=== PATIENT | female | born 1985 | race Caucasian/White ===

== ENCOUNTER 2018-08-08 22:05 | Emergency (ER) | payer SELFPAY ==
[2018-08-08 22:10] VITALS: BMI 29.2
--- NOTE | 2018-08-08 22:15 | PDOC ---
History of Present Illness - General Chief Complaint: Vaginal Bleeding Stated Complaint: VAGINAL BLEEDING/7 WKS Time Seen by Provider: 08/08/18 22:14 - History of Present Illness Initial Comments: 08/08/18 22:35 The patient is a 33 year old 7 week female who presents for evaluation of vaginal bleeding. The patient reports a 1 day history of crampy lower abdominal pain with associated vaginal spotting prompting her presentation to the ED for further evaluation. 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 Her LMP was 06/23/18. She reports some constipation but otherwise denies fevers, chills, SOB, chest pain, nausea, vomiting, or changes with urination. Past History - Past Medical History Allergies/Adverse Reactions: Allergies Allergy/AdvReac Type Severity Reaction Status Date / Time No Known Allergies Allergy Verified 08/08/18 22:10 Home Medications: Ambulatory Orders Oxycodone HCl/Acetaminophen [Percocet 5/325 -] 1 - 2 tab PO Q4H PRN #20 tablet 10/22/15 COPD: No - Immunization History Immunization Up to Date: Yes - Suicide/Smoking/Psychosocial Hx Smoking History: Never smoked Have you smoked in the past 12 months: No Hx Alcohol Use: Yes (occasion) Drug/Substance Use Hx: No Substance Use Type: None Review of Systems - Review of Systems Comments:: 08/08/18 22:37 Constitutional: No fevers, chills, fatigue, malaise HEENT: No Rhinorrhea, nasal congestion, visual changes Cardiovascular: No chest pain, syncope, palpitations, lightheadedness Respiratory: No Cough, SOB, Hemoptysis, Gastrointestinal: Lower abdominal cramping. No Nausea, Vomiting, Constipation, Diarrhea, Melena Genitourinary: Vaginal bleeding. No Dysuria, Frequency, Urgency, Hesitancy, Hematuria, Flank pain Musculoskeletal: No Myalgia, arthralgia Skin: No rashes, itching, bruising, pallor Neurologic: No Headache, Dizziness, Numbness, Weakness, or Tingling Psychiatric: No Hallucinations. No SI or HI *Physical Exam - Vital Signs Last Vital Signs Temp Pulse Resp BP Pulse Ox 86 18 116/67 100 08/08/18 22:07 08/08/18 22:07 08/08/18 22:07 08/08/18 22:07 - Physical Exam Comments: 08/08/18 22:39 General Appearance: Nourished. No Apparent Distress HEENT No Pharyngeal Erythema, Tonsillar Exudate, Tonsillar Erythema Neck: No Cervical Lymphadenopathy Respiratory/Chest: Lungs Clear, Normal Breath Sounds. No Crackles, Rales, Rhonchi, Wheezing Cardiovascular: Regular Rhythm, Regular Rate. No Murmur, Gallops, Rubs Gastrointestinal/Abdominal: Normal Bowel Sounds, Soft. No Guarding, Rebound, Tenderness Pelvic Exam: Musculoskeletal: No CVA Tenderness Extremity: Normal Capillary Refill Integumentary: Normal Color, Dry, Warm Neurologic: Fully Oriented, Alert, Normal Mood/Affect, Normal Response, ED Treatment Course - LABORATORY CBC & Chemistry Diagram: 08/08/18 22:33 08/08/18 23:00 Medical Decision Making - Medical Decision Making 08/08/18 22:39 The patient is a 33 year old 7 week female who presents for evaluation of vaginal bleeding. The patient appears clinically well on exam. Given the patient's history and physical exam, we will obtain a cbc, cmp, beta- quant, ua, type and screen and transvaginal US to evaluate further. We will continue to monitor and reassess while here in the ED. *DC/Admit/Observation/Transfer Diagnosis at time of Disposition: Threatened - Discharge Dispostion Disposition: HOME Condition at time of disposition: Stable Decision to Admit order: No - Referrals Referrals: Cici Bentley MD [Primary Care Provider] - - Patient Instructions Printed Discharge Instructions: DI for Vaginal Bleeding During Additional Instructions: Please return to the ER if you experience concerning or worsening symptoms including worsening difficulty breathing, weakness, or chest pain, vaginal bleeding, abdominal pain. Your lab and ultrasound results were normal here in the ER. Please call to schedule a follow up appointment with your OB specialist within 2-3 days to discuss your ER visit and further management of your symptoms. - Post Discharge Activity
[2018-08-08 22:51] LABS: BASO % 0.7 % (0-2.0); EOS % 1.1 % (0-4.5); HEMATOCRIT 38.9 % (32.4-45.2); HEMOGLOBIN 13.8 GM/dL (10.7-15.3); LYMPH % 36.6 % (8-40); MCH 32.2 pg (25.7-33.7); MCHC 35.4 g/dl (32.0-36.0); MEAN CELL VOLUME 91.2 fl (80-96); MEAN PLT VOLUME 7.9 fl (7.5-11.1); MONO % 10.5 % (3.8-10.2); NEUT % 51.1 % (42.8-82.8); PLATELET COUNT 277 K/MM3 (134-434); RBC 4.27 M/mm3 (3.60-5.2); RDW 13.2 % (11.6-15.6)
[2018-08-08 22:55] LABS: URINE APPEARANCE CLEAR; URINE BILIRUBIN NEGATIVE (<2.0 mg/dL); URINE COLOR STRAW; URINE GLUCOSE (UA) NEGATIVE (NEGATIVE); URINE KETONE NEGATIVE (NEGATIVE); URINE LEUK ESTERASE 1+ (NEGATIVE); URINE NITRITE NEGATIVE (NEGATIVE); URINE PROTEIN NEGATIVE (NEGATIVE); URINE UROBILINOGEN NEGATIVE mg/dL (0.2-1.0)
[2018-08-08 23:05] LABS: EPI CELLS RARE /HPF (FEW); URINE BACTERIA RARE /hpf (NONE SEEN)
[2018-08-08 23:43] LABS: ALBUMIN 3.7 g/dl (3.4-5.0); ALK PHOS 43 U/L (45-117); ANION GAP 7 MMOL/L (8-16); BILIRUBIN,TOTAL 0.2 mg/dL (0.2-1); BLOOD UREA NITROGEN 20 mg/dL (7-18); CALCIUM 9.4 mg/dL (8.5-10.1); CHLORIDE 104 mmol/L (98-107); CO2 25 mmol/L (21-32); CREATININE 0.8 mg/dL (0.55-1.3); GLUCOSE,RANDOM 77 mg/dL (74-106); SGOT/AST 30 U/L (15-37); SGPT/ALT 54 U/L (13-61); SODIUM 137 mmol/L (136-145); TOT PROT 7.4 g/dl (6.4-8.2)
--- NOTE | 2018-08-09 00:48 | PDOC ---
Attending Attestation - Resident Resident Name: Luan Fox - ED Attending Attestation I have performed the following: I have examined & evaluated the patient, The case was reviewed & discussed with the resident, I agree w/resident's findings & plan, Exceptions are as noted <Irina Bryant - Last Filed: 08/09/18 00:47> - HPI HPI: 08/09/18 00:52 The patient is a 33-year-old female, 7 weeks , history of 2 miscarriages , presents to the emergency department with vaginal bleeding. The patient reports shes been having vaginal spotting for the past day associated with intermittent lower abdominal pain. Denies fever, chills, nausea, vomiting, shortness of breath, chest pain, dysuria, hematuria, frequency or urgency to urinate. LMP: 06/23/2018 Allergies: NKA Social history: No past or present use of tobacco or recreational drugs. Social use of alcohol reported. - Medical Decision Making 08/09/18 00:52 Documentation prepared by Venessa Paul, acting as medical collections for Irina Bryant MD. <Venessa Paul - Last Filed: 08/09/18 00:52>
[2018-08-09 01:32] VITALS: BP 118/66; PULSE 69; TEMP 98.2
== END 2018-08-09 01:32 | disposition home or self-care (01) ==
LOC: JER 22:05
DX: O26.891 Other specified pregnancy related conditions, first trimester (principal); O20.0 Threatened abortion; Z3A.01 Less than 8 weeks gestation of pregnancy
CPT/HCPCS: 36415; 76817-TC; 80053; 81003; 81015; 84702; 85025; 86850; 86900; 86901; 99282-25

== ENCOUNTER 2019-10-01 07:23 | Emergency (ER) | payer OTHER ==
[2019-10-01] MEDS ORDERED: morphine CARPU-JECT 2 MG/1 ML DISP.SYRIN IVPUSH ONE (07:51)
--- NOTE | 2019-10-01 07:54 | PDOC ---
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 Patient denies any fever, chills, nausea, vomiting, or diarrhea but reports 10/10 pain. LMP was 'last month." Patient denies any urinary frequency, urgency, or pain. No recent travel or sick contacts. PAST MEDICAL HISTORY: Denies past medical history FAMILY HISTORY: Denies SOCIAL HISTORY: Denies tobacco, alcohol, illicit drug use. SURGICAL HISTORY: Denies ALLERGIES: No known drug allergies REVIEW OF SYSTEMS General/Constitutional: Denies fever or chills. Denies weakness, weight change. HEENT: Denies change in vision. Denies ear pain or discharge. Denies sore throat. Cardiovascular: Denies chest pain or shortness of breath. Respiratory: Denies cough, wheezing, or hemoptysis. Gastrointestinal: Severe LLQ pain. Denies nausea, vomiting, diarrhea or constipation. Denies rectal bleeding. Genitourinary: Denies dysuria, frequency, or change in urination. Musculoskeletal: Denies joint or muscle swelling or pain. Denies neck or back pain. Skin and breasts: Denies rash or easy bruising. Neurologic: Denies headache, vertigo, loss of consciousness, or loss of sensation. Psychiatric: Denies depression or anxiety. PHYSICAL EXAM General Appearance: Well-appearing, appropriately dressed. No apparent distress , no intoxication. HEENT: EOMI, PERRLA, normal ENT inspection, normal voice, TMs normal, pharynx normal. No conjunctival pallor. No photophobia, scleral icterus. Neck: Supple. Trachea midline. No tenderness, rigidity, carotid bruit, stridor , lymphadenopathy, or thyromegaly. Respiratory/Chest: Lungs CTAB. No shortness of breath, chest tenderness, respiratory distress, accessory muscle use. No crackles, rales, rhonchi, stridor , wheezing, dullness Cardiovascular: RRR. S1, S2. No JVD, murmur, bradycardia, tachycardia. Vascular Pulses: Dorsalis-Pedis (R): 2+, Dorsalis-Pedis (L): 2+ Gastrointestinal/Abdominal: Marked LLQ/L pelvic TTP. Normal bowel sounds. Abdomen soft, non-distended. No tenderness or rebound tenderness. No organomegaly, pulsatile mass, guarding, hernia, hepatomegaly, splenomegaly. Lymphatic: No adenopathy, tenderness. Musculoskeletal/Extremities: Normal inspection. FROM of all extremities, normal capillary refill. Pelvis Stable. No CVA tenderness. No tenderness to extremities, pedal edema, swelling, erythema or deformity. Integumentary: Appropriate color, dry, warm. 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 Fully oriented, alert. Appropriate mood/affect. Motor strength 5/5. No appreciable EOM palsy, facial droop or sensory deficit. 10/01/19 09:22 Past History - Past Medical History Allergies/Adverse Reactions: Allergies Allergy/AdvReac Type Severity Reaction Status Date / Time No Known Allergies Allergy Verified 10/01/19 08:41 Home Medications: Ambulatory Orders Doxycycline Hyclate 100 mg PO BID #28 tablet 10/01/19 Nitrofurantoin Monohyd/M-Cryst [Macrobid -] 100 mg PO BID #14 capsule 10/01/19 COPD: No - Immunization History Immunization Up to Date: Yes - Psycho Social/Smoking Cessation Hx Smoking History: Never smoked Have you smoked in the past 12 months: No Hx Alcohol Use: Yes (social) Drug/Substance Use Hx: No Substance Use Type: None *Physical Exam - Vital Signs Last Vital Signs Temp Pulse Resp BP Pulse Ox 98.2 F 113 H 26 H 136/79 98 10/01/19 07:27 10/01/19 07:27 10/01/19 07:27 10/01/19 07:27 10/01/19 07:27 ED Treatment Course - LABORATORY CBC & Chemistry Diagram: 10/01/19 08:10 10/01/19 08:10 - RADIOLOGY Radiology Studies Ordered: Category Date Time Status PELVIS(OTHER) US [US] Stat Ultrasound 10/01/19 07:51 Ordered TRANSVAGINAL ULTRASOUND US [US] Stat Ultrasound 10/01/19 07:51 Ordered Medical Decision Making - Medical Decision Making 10/01/19 09:24 34 yo F with no PMH presents to ED with 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 -labs, urine -morphine -US 10/01/19 11:06 US negative for torsion/TOA/cyst. Will order CTAP to r/o stone vs pyelo. Pelvic exam positive for yellow/green discharge with marked L adnexal tenderness. Clinical presentation suspicious for PID, will cover with abx. -doxy -ceftriaxone UA + for 111 WBC, will cover for UTI. -Macrobid 10/01/19 13:36 CT negative. Will d/c home with close follow up. Advised patient to take medication as prescribed and follow up with [facility] MANAGER within the next week. Advised patient of signs and symptoms for return to ED. Patient verbalized understanding and agrees to plan. Discharge - Discharge Information Problems reviewed: Yes Clinical Impression/Diagnosis: Pelvic inflammatory disease (PID) Urinary tract infection Qualifiers: Urinary tract infection type: site unspecified Hematuria presence: without hematuria Qualified Code(s): N39.0 - Urinary tract infection, site not specified Condition: Stable Disposition: HOME - Admission No - Additional Discharge Information Prescriptions: Doxycycline Hyclate 100 mg PO BID #28 tablet Nitrofurantoin Monohyd/M-Cryst [Macrobid -] 100 mg PO BID #14 capsule - Follow up/Referral Referrals: Lexis Leong MD [Staff Physician] - - Patient Discharge Instructions Patient Printed Discharge Instructions: DI for Pelvic Inflammatory Disease, DI for Urinary Tract Infection (UTI) Additional Instructions: Please take medications as prescribed. Complete the entire course of antibiotics even if your symptoms improve. Follow-up with your primary care doctor or [facility] within the next week for continued monitoring of your symptoms. If you develop any fever, chills, nausea, vomiting, diarrhea, or any new or worsening pain to your abdomen, please return to the ER immediately. - Post Discharge Activity
[2019-10-01 07:59] VITALS: BP 136/79; PULSE 113; TEMP 98.2; BMI 26.5
[2019-10-01] MEDS ORDERED: MORPHINE SULFATE 2 MG/ML VIAL ONE (07:59)
[2019-10-01] MEDS ORDERED: SODIUM CHLORIDE 0.9% 500 ML INFUS.BAG IV ONE (08:09)
[2019-10-01] MEDS ORDERED: ONDANSETRON 4 MG/2 ML VIAL IVPUSH ONE (08:18)
[2019-10-01] MEDS ORDERED: ONDANSETRON 4 MG/2 ML VIAL ONE (08:23)
[2019-10-01 08:39] LABS: BASO % 0.3 % (0-2.0); HEMATOCRIT 40.2 % (32.4-45.2); HEMOGLOBIN 13.6 GM/dL (10.7-15.3); MCH 31.6 pg (25.7-33.7); MCHC 33.8 g/dl (32.0-36.0); MEAN CELL VOLUME 93.5 fl (80-96); MEAN PLT VOLUME 8.5 fl (7.5-11.1); MONO % 10.5 % (3.8-10.2); NEUT % 50.2 % (42.8-82.8); PLATELET COUNT 250 K/MM3 (134-434); RDW 13.7 % (11.6-15.6); WHITE BLOOD COUNT 5.9 K/mm3 (4.0-10.0)
[2019-10-01 08:42] LABS: ALBUMIN 3.8 g/dl (3.4-5.0); BILIRUBIN,TOTAL 0.3 mg/dL (0.2-1); BLOOD UREA NITROGEN 10.9 mg/dL (7-18); CALCIUM 9.6 mg/dL (8.5-10.1); CREATININE 0.9 mg/dL (0.55-1.3); POTASSIUM 4.2 mmol/L (3.5-5.1); TOT PROT 7.6 g/dl (6.4-8.2)
[2019-10-01] MEDS ORDERED: KETOROLAC TROMETHAMINE 30 MG/1 ML VIAL IVPUSH ONE (10:27)
[2019-10-01] MEDS ORDERED: ACETAMINOPHEN 1000 MG/100 ML VIAL (NON FORMULARY) IVPB ONE (10:27)
[2019-10-01] MEDS ORDERED: ACETAMINOPHEN INJECTION 100 ML IVPB ONE (10:36)
[2019-10-01 10:58] LABS: EPI CELLS 2.6 /HPF (0-5/HPF); HYALINE CASTS 34 /lpf (0-8); PH,URINE 5.5 (5.0-8.0); URINE APPEARANCE CLOUDY; URINE BACTERIA 6277.9 /hpf (NEGATIVE); URINE BILIRUBIN NEGATIVE (NEGATIVE); URINE COLOR YELLOW; URINE GLUCOSE (UA) NEGATIVE (NEGATIVE); URINE KETONE NEGATIVE (NEGATIVE); URINE LEUK ESTERASE 2+ (NEGATIVE); URINE NITRITE NEGATIVE (NEGATIVE); URINE PROTEIN TRACE (NEGATIVE); URINE RBC 3 /hpf (0-4); URINE UROBILINOGEN 0.2 mg/dL (0.2-1.0); URINE WBC 111 /hpf (0-5)
[2019-10-01] MEDS ORDERED: AZITHROMYCIN 500 MG TABLET PO ONE (11:06)
[2019-10-01] MEDS ORDERED: NITROFURANTOIN MACROCRYSTAL 50 MG CAPSULE (FP) PO SCH (11:15)
[2019-10-01] MEDS ORDERED: DOXYCYCLINE HYCLATE 100 MG CAPSULE PO ONE ×2 (11:27→12:21)
[2019-10-01] MEDS ORDERED: NITROFURANTOIN MACROCRYSTAL 50 MG CAPSULE (FP) ONE (12:21)
== END 2019-10-01 14:20 | disposition home or self-care (01) ==
LOC: JER 07:23
PROC: 3E02329 Introduction of Other Anti-infective into Muscle, Percutaneous Approach (ICD-10-PCS; principal; 2019-10-01)
PROC: 3E033NZ Introduction of Analgesics, Hypnotics, Sedatives into Peripheral Vein, Percutaneous Approach (ICD-10-PCS; 2019-10-01)
PROC: 3E033NZ Introduction of Analgesics, Hypnotics, Sedatives into Peripheral Vein, Percutaneous Approach (ICD-10-PCS; 2019-10-01)
PROC: 3E033GC Introduction of Other Therapeutic Substance into Peripheral Vein, Percutaneous Approach (ICD-10-PCS; 2019-10-01)
DX: N73.8 Other specified female pelvic inflammatory diseases (principal); N39.0 Urinary tract infection, site not specified; B96.89 Other specified bacterial agents as the cause of diseases classified elsewhere
CPT/HCPCS: 36415; 74177-TC; 76830-TC; 76856-TC; 80053; 81003; 83690; 84703; 85025; 87086; 87186; 87491; 87591; 99282-25; J0131; Q9967